=== PATIENT | male | born 1945 | race Caucasian/White ===

== ENCOUNTER 2017-07-28 14:23 | Emergency (ER) | payer OTHER ==
[~2017-07-28] VITALS: Ht 170.2 cm; Wt 96.0 kg
[2017-07-28 14:31] VITALS: BP 164/93; PULSE 84; RESP 18; TEMP 97.8; O2SAT 96
[2017-07-28] MEDS ORDERED: TRAZ1TAB14 PO (15:03)
[2017-07-28] MEDS ORDERED: PRAZ2CAP PO (15:03)
[2017-07-28] MEDS ORDERED: METF500T PO (15:03)
[2017-07-28] MEDS ORDERED: VIAG25TA PO (15:03)
[2017-07-28] MEDS ORDERED: ASPI-516 CHEW (15:03)
[2017-07-28] MEDS ORDERED: NAPR-855 PO (15:03)
[2017-07-28] MEDS ORDERED: AMLO5TAB2 PO (15:03)
[2017-07-28] MEDS ORDERED: PRAV40TA2 PO (15:03)
[2017-07-28] MEDS ORDERED: LISI10TA3 PO (15:03)
[2017-07-28] MEDS ORDERED: SODIUM CHLORIDE 0.9% FLUSH 10 ML FLUSH IV FLUSH PRN (15:15)
[2017-07-28] MEDS ORDERED: SODIUM CHLORID 0.9% 500 ML INJ 500 ML IV ONE (15:15)
[2017-07-28] MEDS ORDERED: ONDANSETRON ODT 4 MG TAB PO ONE (15:15)
--- NOTE | 2017-07-28 15:15 | PD ---
HPI Chief Complaint: Respiratory Symptoms Time Seen by Provider: 15:04 Travel History International Travel<30 days: No Contact w/Intl Traveler<30days: No Traveled to known affect area: No History of Present Illness HPI Patient comes emergency department complaining of vomiting that is nonbloody nonbilious ongoing for 2 weeks. Patient is he tends to eat something he vomits it back up. Patient reports he feels the food is going all the way down to his stomach. Denies any chest pain, but complaining of dyspnea with heavy exertion. Denies anything making symptoms better. Reports his urine seems a little bit darker than normal and had couple episodes of loose stool 2 days ago. Denies any abdominal pain, chest pain, headache, dizziness, fevers, or known sick contacts. Denies anything making symptoms better. Denies any pain anywhere. PFSH Past Medical History Arthritis: Yes High Cholesterol: Yes Diabetes: Yes Patient Takes Glucophage: Yes (07/28/17@0900 am ) Hypertension: Yes Insomnia: Yes Psychiatric: Yes (ptsd ) Past Surgical History Abdominal Surgery: Yes (abd hernia ) Tonsillectomy: Yes Social History Alcohol Use: No Tobacco Use: No Substance Use: No Allergies-Medications (Allergen,Severity, Reaction): Coded Allergies: No Known Allergies (Unverified , 07/28/17) Reported Meds & Prescriptions Reported Meds & Active Scripts Active Reported Viagra (Sildenafil Citrate) 25 Mg Tab 25 Mg PO DAILY PRN Trazodone (Trazodone HCl) 150 Mg Tablet 150 Mg PO HS Prazosin (Prazosin HCl) 2 Mg Cap 2 Mg PO DAILY Pravastatin 40 Mg Tab 40 Mg PO DAILY Naproxen 375 Mg Tab 375 Mg PO BID Metformin (Metformin HCl) 500 Mg Tab 500 Mg PO BIDPC Lisinopril 10 Mg Tab 5 Mg PO DAILY Aspirin 81 Mg Chew 81 Mg CHEW DAILY Amlodipine (Amlodipine Besylate) 5 Mg Tab 5 Mg PO HS Review of Systems Except as stated in HPI: all other systems reviewed are Neg Physical Exam Narrative GENERAL: Well-developed, overly nourished, in no acute distress, and non-ill appearing. SKIN: Focused skin assessment warm and dry. HEAD: Atraumatic. Normocephalic. EYES: Pupils equal and round. EOMI. No scleral icterus. No injection or drainage. ENT: No nasal bleeding or discharge. Mucous membranes pink and moist. NECK: Trachea midline. Supple. No nuclear rigidity. CARDIOVASCULAR: Regular rate and rhythm. No murmur appreciated. RESPIRATORY: No accessory muscle use. No respiratory distress. Clear to auscultation. Breath sounds equal bilaterally. GASTROINTESTINAL: Abdomen soft, nondistended, and no guarding. Hepatic and splenic margins not palpable. Normal bowel sounds x4. No pulsatile mass. Patient reports tenderness palpation in epigastric region. MUSCULOSKELETAL: No obvious deformities. No clubbing. No cyanosis. No edema. Full range of motion. NEUROLOGICAL: Awake and alert. No obvious cranial nerve deficits. Motor grossly within normal limits. Normal speech. PSYCHIATRIC: Appropriate mood and affect; insight and judgment normal. Data Data Last Documented VS Vital Signs Date Time Temp Pulse Resp B/P (MAP) Pulse Ox O2 Delivery O2 Flow Rate FiO2 07/28/17 18:46 07/28/17 17:56 98 Nasal Cannula 2.00 07/28/17 17:56 82 17 07/28/17 14:31 97.8 Orders Orders Complete Blood Count With Diff (07/28/17 15:11) Comprehensive Metabolic Panel (07/28/17 15:11) Lipase (07/28/17 15:11) Lactic Acid (07/28/17 15:11) Prothrombin Time / Inr (Pt) (07/28/17 15:11) Act Partial Throm Time (Ptt) (07/28/17 15:11) Urinalysis - C+S If Indicated (07/28/17 15:11) Iv Access Insert/Monitor (07/28/17 15:11) Ecg Monitoring (07/28/17 15:11) Oximetry (07/28/17 15:11) Sodium Chloride 0.9% Flush (Ns Flush) (07/28/17 15:15) Electrocardiogram (07/28/17 15:11) Chest, Single Ap (07/28/17 15:11) Sodium Chlorid 0.9% 500 Ml Inj (Ns 500 M (07/28/17 15:15) Ondansetron Odt (Zofran Odt) (07/28/17 15:15) B-Type Natriuretic Peptide (07/28/17 15:13) Ct Thorax/ Chest W Iv Contrast (07/28/17 ) Ct Abd/Pel W Iv Contrast(Rout) (07/28/17 ) Iohexol 350 Inj (Omnipaque 350 Inj) (07/28/17 16:20) Ed Discharge Order (07/28/17 18:30) Labs Laboratory Tests Test 07/28/17 15:22 07/28/17 15:24 07/28/17 16:10 White Blood Count 9.0 TH/MM3 Red Blood Count 4.26 MIL/MM3 Hemoglobin 12.5 GM/DL Hematocrit 37.2 % Mean Corpuscular Volume 87.4 FL Mean Corpuscular Hemoglobin 29.5 PG Mean Corpuscular Hemoglobin Concent 33.7 % Red Cell Distribution Width 13.9 % Platelet Count 256 TH/MM3 Mean Platelet Volume 8.3 FL Neutrophils (%) (Auto) 71.5 % Lymphocytes (%) (Auto) 14.3 % Monocytes (%) (Auto) 9.5 % Eosinophils (%) (Auto) 4.1 % Basophils (%) (Auto) 0.6 % Neutrophils # (Auto) 6.5 TH/MM3 Lymphocytes # (Auto) 1.3 TH/MM3 Monocytes # (Auto) 0.9 TH/MM3 Eosinophils # (Auto) 0.4 TH/MM3 Basophils # (Auto) 0.1 TH/MM3 CBC Comment DIFF FINAL Differential Comment Prothrombin Time 11.2 SEC Prothromb Time International Ratio 1.1 RATIO Activated Partial Thromboplast Time 26.1 SEC Blood Urea Nitrogen 14 MG/DL Creatinine 1.10 MG/DL Random Glucose 88 MG/DL Total Protein 8.1 GM/DL Albumin 3.6 GM/DL Calcium Level 9.2 MG/DL Alkaline Phosphatase 98 U/L Aspartate Amino Transf (AST/SGOT) 51 U/L Alanine Aminotransferase (ALT/SGPT) 40 U/L Total Bilirubin 0.4 MG/DL Sodium Level 142 MEQ/L Potassium Level 3.7 MEQ/L Chloride Level 103 MEQ/L Carbon Dioxide Level 28.6 MEQ/L Anion Gap 10 MEQ/L Estimat Glomerular Filtration Rate 66 ML/MIN B-Type Natriuretic Peptide 36 PG/ML Lipase 257 U/L Lactic Acid Level 0.9 mmol/L Urine Color YELLOW Urine Turbidity CLEAR Urine pH 5.5 Urine Specific [place] 1.022 Urine Protein 300 OR GREATER mg/dL Urine Glucose (UA) 100 mg/dL Urine Ketones NEG mg/dL Urine Occult Blood NEG Urine Nitrite NEG Urine Bilirubin NEGATIVE Urine Urobilinogen 1.0 MG/DL Urine Leukocyte Esterase TRACE Urine RBC 0-3 /hpf Urine WBC 0-2 /hpf Urine Squamous Epithelial Cells 0-5 /hpf Microscopic Urinalysis Comment CULT NOT INDICATED MDM Medical Decision Making Medical Screen Exam Complete: Yes Emergency Medical Condition: Yes Interpretation(s) EKG reveiwed by Dr. Alvarado shows sinus rhythm ventricular rate of 84. No STEMI. Differential Diagnosis Pneumonia, pancreatitis, metabolic disturbance, COPD, gastritis, ileus, achalasia Narrative Course Patient in no obvious distress upon re-evaluation. All pertinent laboratory/ Radiology result(s) discussed with patient. Discussed patient with Dr. Alvarado , who saw and evaluated the patient and is in agreement with plan of care disposition.. Any questions/concerns in reference to patient diagnosis/ condition discussed and clarified prior to patient's discharge. Reinforced sheer importance of close follow up with patient's primary physician or primary care clinic. Instructed patient to return to ED immediately, if symptoms return/ worsen. Patient showed understanding of above instructions. Further instructions and recommendations were detailed in discharge paperwork. Patient ambulated without difficulty out of ED at discharge. Diagnosis Primary Impression: Lung mass Additional Impression: Liver lesion Patient Instructions: General Instructions Additional Instructions: Follow-up with your primary care physician tomorrow for further evaluation of findings noted here and CT today. Return to the emergency department if symptoms get worse. Disposition: 01 DISCHARGE HOME Condition: Stable Darian Baker July 28, 2017 15:15
--- NOTE | 2017-07-28 15:34 | RADRPT ---
EXAM DATE: 07/28/2017 3:27 PM EDT AGE/SEX: 71 years / Male INDICATIONS: Short of breath. CLINICAL DATA: This is the patient's initial encounter. Patient reports that signs and symptoms have been present for 4 - 6 days and indicates a pain score of 0/10. MEDICAL/SURGICAL HISTORY: Hypertension. None. COMPARISON: No prior [facility] exams available for comparison. FINDINGS: A single AP portable erect view of the chest was obtained and demonstrates abnormal opacity in the le ft perihilar region and left lung base. This has a somewhat rounded masslike upper border. There is b lunting of left costophrenic angle with questionable elevation of the left hemidiaphragm versus subpu lmonic fluid collection. The right lung is clear. The heart size is within normal limits. CONCLUSION: Abnormal opacity in the left lung with questionable underlying mass. There is an apparent left effusi on as well. Further evaluation with chest CT with contrast is recommended. Electronically signed by: Justus Moyer MD 07/28/2017 3:32 PM EDT
[2017-07-28 15:51] LABS: AUTOMATED NEUTROPHIL # 6.5 TH/MM3 (1.8-7.7); BASOPHIL # 0.1 TH/MM3 (0-0.2); BASOPHIL % 0.6 % (0.0-2.0); EOSINOPHIL # 0.4 TH/MM3 (0-0.4); EOSINOPHIL % 4.1 % (0.0-4.0); HEMATOCRIT 37.2 % (39.0-51.0); HEMOGLOBIN 12.5 GM/DL (13.0-17.0); LYMPH % 14.3 % (9.0-44.0); LYMPHOCYTE # 1.3 TH/MM3 (1.0-4.8); MEAN CELL VOLUME 87.4 FL (80.0-100.0); MEAN CORPUSCULAR HEMOGLOBIN 29.5 PG (27.0-34.0); MEAN CORPUSCULAR HGB CONC 33.7 % (32.0-36.0); MEAN PLATELET VOLUME 8.3 FL (7.0-11.0); MONO % 9.5 % (0.0-8.0); MONOCYTE # 0.9 TH/MM3 (0-0.9); NEUT % 71.5 % (16.0-70.0); PLATELET COUNT 256 TH/MM3 (150-450); RED BLOOD COUNT 4.26 MIL/MM3 (4.50-5.90); RED CELL DISTRIBUTION WIDTH 13.9 % (11.6-17.2)
[2017-07-28 16:00] LABS: INTERNATIONAL NORMALIZED RATIO 1.1 RATIO; PROTHROMBIN TIME - PATIENT 11.2 SEC (9.8-11.6)
[2017-07-28 16:11] LABS: ALBUMIN 3.6 GM/DL (3.4-5.0); ALT (GPT) 40 U/L (12-78); AST (GOT) 51 U/L (15-37); BICARBONATE 28.6 MEQ/L (21.0-32.0); BLOOD UREA NITROGEN 14 MG/DL (7-18); CALCIUM 9.2 MG/DL (8.5-10.1); CHLORIDE 103 MEQ/L (98-107); GLOMERULAR FILTRATION RATE 66 ML/MIN (>89); GLUCOSE,RANDOM 88 MG/DL (74-106); SODIUM (NA) 142 MEQ/L (136-145)
[2017-07-28 16:13] LABS: ALKALINE PHOSPHATASE 98 U/L (45-117); TOTAL BILIRUBIN ADULT 0.4 MG/DL (0.2-1.0); TOTAL PROTEIN 8.1 GM/DL (6.4-8.2)
[2017-07-28] MEDS ORDERED: IOHEXOL 350 MG/ML 10 ML VIAL (for RAD DIAG) IVCONTRAST ONE (16:20)
[2017-07-28 16:31] LABS: BILIRUBIN, URINE NEGATIVE (NEG); BLOOD, URINE NEG (NEG); GLUCOSE,URINE 100 mg/dL (NEG); KETONE, URINE NEG (NEG); NITRITE,URINE NEG (NEG); PH, URINE 5.5 (5.0-8.5); RBC, URINE 0-3 /hpf (0-3); SQUAMOUS EPITHELIAL CELL URINE 0-5 /hpf (0-5); URINE COLOR YELLOW (YELLW/STRAW); URINE LEUKOCYTE ESTERASE TRACE (NEG); WBC, URINE 0-2 /hpf (0-5)
--- NOTE | 2017-07-28 16:54 | RADRPT ---
EXAM DATE: 07/28/2017 4:42 PM EDT AGE/SEX: 71 years / Male INDICATIONS: Vomiting and shortness of breath for one week. CLINICAL DATA: This is the patient's initial encounter. Patient reports that signs and symptoms have been present for 1 week and indicates a pain score of 4/10. MEDICAL/SURGICAL HISTORY: Hypertension. Diabetes. . Hernia repair ORAL CONTRAST: No oral contrast ingested. RADIATION DOSE: 6.46 CTDI (mGy) ; Combined studies COMPARISON: No prior [facility] exams available for comparison. TECHNIQUE: Multiple contiguous axial images were obtained through the abdomen and pelvis following b olus infusion of 95 ml Omnipaque 350 (iohexol) nonionic water-soluble contrast as a cumulative dose for multiple exams. No oral contrast ingested. Using automated exposure control and adjustment of t he mA and/or kV according to patient size, the radiation dose was kept as low as reasonably achievabl e to obtain optimal diagnostic quality images. FINDINGS: Lower Lungs: There is a 1.5 cm pleural-based noncalcified nodule in the right lower lobe. There is a second 1.3 cm nodule located adjacent to this. A small amount of pericardial fluid is noted.. Liver: The liver has a mildly inhomogeneous density with a 2.2 cm low-attenuation lesion in the left lobe. There are multiple tiny scattered low-density lesions in the right lobe which are too small to accurately characterize. The largest measures approximately 8 mm. There is no dilation of the biliary tree. There is mild hepatic steatosis. Spleen: Normal in size and shape. There is a 1.9 cm subtle low anterior margin of the spleen. Pancreas: Unremarkable without mass or calcification. Kidneys: Normal in size and shape. No evidence of solid mass or hydronephrosis. There is a 5 mm calc ulus in the lower central right kidney. There is a parapelvic cyst on the right and cortical cysts on the left. Adrenal Glands: Unremarkable. Aorta: The aorta and proximal iliac vessels are grossly unremarkable without aneurysmal dilation. Bowel/Mesentery: No oral contrast was given limiting the sensitivity. The bowel loops are grossly un remarkable. The cecum and sigmoid colon have a normal configuration. Abdominal Wall: Intact. Retroperitoneum: No evidence of adenopathy in the retrocrural, para-aortic, or deep pelvic regions. Bladder: Contours are smooth. Reproductive Organs: No abnormal masses or calcifications seen. Inguinal: The inguinal region is unremarkable without evidence of adenopathy. Bony Structures: Unremarkable. CONCLUSION: 1. 2 noncalcified right lower lobe pulmonary nodules. Please see chest CT for further evaluation thi s date. 2. Focal low-attenuation lesions in the liver which are nonspecific. 3. Low-attenuation lesion in the anterior. 4. 5 mm nonobstructing right renal calculus. 5. Nonobstructive bowel gas pattern. Electronically signed by: Justus Moyer MD 07/28/2017 4:52 PM EDT
--- NOTE | 2017-07-28 17:04 | RADRPT ---
EXAM DATE: 07/28/2017 4:42 PM EDT AGE/SEX: 71 years / Male INDICATIONS: Vomiting and shortness of breath for one week. CLINICAL DATA: This is the patient's initial encounter. Patient reports that signs and symptoms have been present for 1 week and indicates a pain score of 0/10. MEDICAL/SURGICAL HISTORY: Hypertension. Diabetes. . hernia surgery RADIATION DOSE: 6.46 CTDI (mGy) ; Combined studies COMPARISON: No prior [facility] exams available for comparison. TECHNIQUE: Multiple contiguous axial images were obtained through the chest during bolus infusion of 95 ml Omnipaque 350 (iohexol) nonionic water-soluble contrast as a cumulative dose for multiple exa ms. Images were obtained in suspended respiration using multiple row detector helical technique. U sing automated exposure control and adjustment of the mA and/or kV according to patient size, radiati on dose was kept as low as reasonably achievable to obtain optimal diagnostic quality images. FINDINGS: Examination of the pulmonary parenchyma demonstrates multiple pulmonary nodules. These range in size from a mass in the anterior aspect of the left upper lobe measuring 7.0 x 5.7 cm down to approximatel y 5 mm. There are masses distributed throughout both lungs. Findings would be consistent with metasta tic disease to the pulmonary parenchyma. Soft tissue windowed imaging is provided. These demonstrate multiple enlarged anterior mediastinal no amanuel. The largest measures 3.5 cm. In addition, there are enlarged nodes within the subcarinal vanda c hema. The limited portions of upper abdomen visualized are unremarkable. The visualized osseous structures are grossly intact. CONCLUSION: 1. Multiple mass lesions are identified within the pulmonary parenchyma consistent with malignancy. The largest lesion identified in the anterior aspect of the left upper lobe. This would be readily am enable to CT-guided biopsy. 2. There are multiple enlarged nodes in the anterior mediastinum and the subcarinal vanda chain agai n suspicious for malignancy. Electronically signed by: Prince De Santiago MD 07/28/2017 5:03 PM EDT
[2017-07-28 17:56] VITALS: BP 164/87; PULSE 82; RESP 17; O2SAT 90; O2SAT 98
--- NOTE | 2017-07-28 18:29 | PD ---
Data Data Last Documented VS Vital Signs Date Time Temp Pulse Resp B/P (MAP) Pulse Ox O2 Delivery O2 Flow Rate FiO2 07/28/17 17:56 164/87 (112) 98 Nasal Cannula 2.00 07/28/17 17:56 82 17 07/28/17 14:31 97.8 Orders Orders Complete Blood Count With Diff (07/28/17 15:11) Comprehensive Metabolic Panel (07/28/17 15:11) Lipase (07/28/17 15:11) Lactic Acid (07/28/17 15:11) Prothrombin Time / Inr (Pt) (07/28/17 15:11) Act Partial Throm Time (Ptt) (07/28/17 15:11) Urinalysis - C+S If Indicated (07/28/17 15:11) Iv Access Insert/Monitor (07/28/17 15:11) Ecg Monitoring (07/28/17 15:11) Oximetry (07/28/17 15:11) Sodium Chloride 0.9% Flush (Ns Flush) (07/28/17 15:15) Electrocardiogram (07/28/17 15:11) Chest, Single Ap (07/28/17 15:11) Sodium Chlorid 0.9% 500 Ml Inj (Ns 500 M (07/28/17 15:15) Ondansetron Odt (Zofran Odt) (07/28/17 15:15) B-Type Natriuretic Peptide (07/28/17 15:13) Ct Thorax/ Chest W Iv Contrast (07/28/17 ) Ct Abd/Pel W Iv Contrast(Rout) (07/28/17 ) Iohexol 350 Inj (Omnipaque 350 Inj) (07/28/17 16:20) Labs Laboratory Tests Test 07/28/17 15:22 07/28/17 15:24 07/28/17 16:10 White Blood Count 9.0 TH/MM3 Red Blood Count 4.26 MIL/MM3 Hemoglobin 12.5 GM/DL Hematocrit 37.2 % Mean Corpuscular Volume 87.4 FL Mean Corpuscular Hemoglobin 29.5 PG Mean Corpuscular Hemoglobin Concent 33.7 % Red Cell Distribution Width 13.9 % Platelet Count 256 TH/MM3 Mean Platelet Volume 8.3 FL Neutrophils (%) (Auto) 71.5 % Lymphocytes (%) (Auto) 14.3 % Monocytes (%) (Auto) 9.5 % Eosinophils (%) (Auto) 4.1 % Basophils (%) (Auto) 0.6 % Neutrophils # (Auto) 6.5 TH/MM3 Lymphocytes # (Auto) 1.3 TH/MM3 Monocytes # (Auto) 0.9 TH/MM3 Eosinophils # (Auto) 0.4 TH/MM3 Basophils # (Auto) 0.1 TH/MM3 CBC Comment DIFF FINAL Differential Comment Prothrombin Time 11.2 SEC Prothromb Time International Ratio 1.1 RATIO Activated Partial Thromboplast Time 26.1 SEC Blood Urea Nitrogen 14 MG/DL Creatinine 1.10 MG/DL Random Glucose 88 MG/DL Total Protein 8.1 GM/DL Albumin 3.6 GM/DL Calcium Level 9.2 MG/DL Alkaline Phosphatase 98 U/L Aspartate Amino Transf (AST/SGOT) 51 U/L Alanine Aminotransferase (ALT/SGPT) 40 U/L Total Bilirubin 0.4 MG/DL Sodium Level 142 MEQ/L Potassium Level 3.7 MEQ/L Chloride Level 103 MEQ/L Carbon Dioxide Level 28.6 MEQ/L Anion Gap 10 MEQ/L Estimat Glomerular Filtration Rate 66 ML/MIN B-Type Natriuretic Peptide 36 PG/ML Lipase 257 U/L Lactic Acid Level 0.9 mmol/L Urine Color YELLOW Urine Turbidity CLEAR Urine pH 5.5 Urine Specific [place] 1.022 Urine Protein 300 OR GREATER mg/dL Urine Glucose (UA) 100 mg/dL Urine Ketones NEG mg/dL Urine Occult Blood NEG Urine Nitrite NEG Urine Bilirubin NEGATIVE Urine Urobilinogen 1.0 MG/DL Urine Leukocyte Esterase TRACE Urine RBC 0-3 /hpf Urine WBC 0-2 /hpf Urine Squamous Epithelial Cells 0-5 /hpf Microscopic Urinalysis Comment CULT NOT INDICATED MDM Supervised Visit with MICHELLE: Yes Narrative Course I, Dr. Alvarado, have reviewed the advance practice practitioner's documentation and am in agreement, met with the patient face to face, made the diagnosis, and the medical decision making was done by me. *My assessment and Findings: I met with the patient and discussed his results in great detail and answered all of his questions. His findings are very suggestive of a new diagnosis of lung cancer. He did smoke for 30 years but no longer does. At this time he is not short of breath. Off of oxygen he is breathing fine. Saturations are 96% on room air and holding steady during a long conversation. He has CT findings consistent with lung cancer masses. He also has a left sided pleural effusion. [facility] tomorrow to report these findings and get full evaluation of the situation. Should he have any significant worsening symptoms he certainly can return here at any time. He understands that time will be important in getting the stuff done promptly. But I do not think he needs emergent hospitalization as he is asymptomatic. Lenny Alvarado MD July 28, 2017 18:29
--- NOTE | 2017-07-29 14:53 | EKG ---
Date Performed: 07/28/2017 Time Performed: 16:07:42 PTAGE: 71 years EKG: Sinus rhythm MODERATE INTRAVENTRICULAR CONDUCTION DELAY BORDERLINE ECG NO PREVIOUS TRACING DOCTOR: Maxime Easley Interpretating Date/Time 07/29/2017 14:51:50
== END 2017-07-28 18:55 | disposition home or self-care (01) ==
LOC: NEPE 14:23
DX: R91.8 Other nonspecific abnormal finding of lung field (principal); K76.9 Liver disease, unspecified; J90 Pleural effusion, not elsewhere classified; R06.00 Dyspnea, unspecified; E11.9 Type 2 diabetes mellitus without complications; I10 Essential (primary) hypertension; R94.31 Abnormal electrocardiogram [ECG] [EKG]
CPT/HCPCS: 71045; 71260; 74177; 80053; 81001; 83605; 83690; 83880; 85025; 85610; 85730; 93005; 96360; 96361; 99285; J7040; Q9967